=== PATIENT | female | born 1955 | race Caucasian/White ===

== ENCOUNTER 2025-02-11 14:21 | Outpatient (AMB) | payer OTHER, SELFPAY ==
--- NOTE | 2025-02-11 13:57 | A.OFFVIS_ITS ---
Vital Signs 02/11/25 14:27 Height 5 ft 4 in Weight 191 lb BMI 32.8 BP 132/70 Blood Pressure Location Rt brachial Position Sitting Pulse 56 Pulse Source Pulse Oximeter Pulse Oximetry (%) 98 Oxygen Delivery Method Room Air Intake Visit Reasons: Obstructive sleep apnea Special Certificate Dictator Required: No Paintings Conservator: Paintings Conservator offered & declined Accompanied by: Self / Same As Patient Allergies Penicillins Allergy (Verified 02/11/25 14:37) hives Sulfa (Sulfonamide Antibiotics) Allergy (Verified 02/11/25 14:37) hives Medication List - Last Reconciled 02/11/25 by Ara Ulrich LPN hydroxyzine HCl 25 mg PO Q8H PRN lisinopril 10 mg PO DAILY HPI HPI Obstructive sleep apnea: Details: Mari is a pleasant 69 year old female, never smoker, with underlying SURYA, HTN and Anxiety. She was referred by PCP for pulmonary evaluation for SURYA. Home PSG 2016 revealed severe SURYA, AHI 32, 26 obstructive and 6 central events, without significant hypoxemia. She presents today to discuss obtaining a machine as she has had her for >5 years with good benefit. She does not currently have a DME, previously used [employer] and underwent initial sleep study with [facility]. She currently denies any respiratory symptoms. [facility] Social History (Updated 02/11/25 @ 14:31 by Ara Ulrich LPN) Patient Tobacco Use Status: Never used Tobacco Review of Systems Const Denies chills, Denies excessive sweating, Denies fever(s), Denies headache(s) and Denies night sweats Eyes Denies dry eyes, Denies irritation and Denies itchy eyes ENT Reports Normal hearing present, Denies headache(s), Denies nasal congestion, Denies nasal discharge, Denies post nasal drip and Denies sore throat Card Denies chest pain, Denies chest pain at rest, Denies chest pain with activity, Denies claudication, Denies leg edema, Denies dyspnea, Denies dyspnea on exertion, Denies orthopnea and Denies paroxysmal nocturnal dyspnea Resp Denies chest congestion, Denies cough, Denies excessive phlegm production, Denies pain on inspiration, Denies pain with cough, Denies dyspnea, Denies dyspnea on exertion, Denies stridor and Denies wheezing Musc Denies myalgias Neuro Reports Normal hearing present and Denies headache(s) Endo Denies excessive sweating Richard/Lymph Denies lymphadenopathy Aller/Immun Denies itchy eyes, Denies seasonal rhinorrhea and Denies wheezing Physical Exam Vital Signs: Last Vital Signs Pulse 56 02/11/25 14:27 BP 132/70 02/11/25 14:27 Pulse Ox 98 02/11/25 14:27 Oxygen Delivery Method Room Air 02/11/25 14:27 BMI result Body Mass Index 32.8 Const General: cooperative, healthy appearing, comfortable, no acute distress, well developed and alert Orientation/consciousness: patient oriented x3 Limitations: no limitations HEENT Head: Yes normal to inspection, Yes normocephalic and Yes atraumatic Ears: hearing grossly normal bilaterally and external ears normal Eyes General: appearance normal, both eyes and all related structures Eyelids: Yes eyelids normal Sclerae: sclerae normal EOM: EOMs intact bilaterally Neck Neck: Yes normal visual inspection and Yes no lymphadenopathy Lymphatic: no lymphadenopathy noted Chest Chest palpation & inspection: normal inspection of the chest Resp Effort & Inspection: normal respiratory effort, able to speak in complete se ntences, no audible wheezes, no cough, no stridor, not tachypneic, no tripod positioning and no use of accessory muscles Auscultation: clear to auscultation bilaterally Cardio Jugular venous distension: no JVD Rate: regular rate Rhythm: regular rhythm Skin Other: warm, dry General skin exam: no rashes or lesions noted Neuro General: patient oriented x3 Cranial nerves: Yes Normal hearing present Cognition (Neuro): normal cognition Gait exam (Neuro): Normal gait present Extrem General: Yes normal to inspection, Yes capillary refill normal, Yes no clubbing, cyanosis or edema and Yes no pedal edema Psych Appearance: grossly normal and well kempt Speech and movement: Normal speech and movement present and Clear speech present Affect: normal affect Attitude: cooperative Thought process: Normal thought process present Thought content: Normal thought content present Insight: Good insight present (Psych) Judgement: Good judgement present (Psych) Assessment & Plan Assessment & Plan (1) Loud snoring: Code(s): R06.83 - Snoring Category: Medical (2) Obstructive sleep apnea: Code(s): G47.33 - Obstructive sleep apnea (adult) (pediatric) Category: Medical Plan Mari presents for management of SURYA, previously under the care of [facility]. She currently has a CPAP machine however is due for a new one, as hers is approximately 7 years old. Will send for updated home sleep study with the possibility of in lab titration study given both obstructive and central sleep apneas. All questions were answered and patient is in agreement of plan. Will follow up to review results or sooner if needed. Orders: Orders RT home sleep study Today R06.83 - Snoring Coding Level of Care Code New Pt Level 3 (78231) Diagnoses Loud snoring R06.83 Obstructive sleep apnea G47.33
[2025-02-11 14:27] VITALS: BP 132/70; PULSE 56; O2SAT 98; BMI 32.8
--- OUTSIDE RECORDS SUMMARY | 2025-02-11 17:15 | XMS_ITS | Clinical Summary ---
Author Organization [facility] [address] [place] [address] [place] [phone] Phone Care Team Providers Care Chief Librarian Work With Blind Name Role Phone Najma Taylor MD Primary Care Provider [phone] Allergies Active Allergy Reactions Criticality Noted Date Comments Penicillins 11/17/2015 Other Reaction(s): Hives/Urticaria Sulfa (Sulfonamide Antibiotics) 11/17/2015 Other Reaction(s): Hives/Urticaria Medications hydrOXYzine HCL (ATARAX) 25 mg tablet Take 1 Tablet by mouth every 8 hours as needed for Anxiety for up to 360 days. 06/27/2024 5 Active lisinopriL (PRINIVIL,ZESTR IL) 10 mg tablet Take 1 tablet (10 mg total) by mouth at bedtime. 90 tablet 1 12/31/2024 Active estradioL (ESTRACE) 0.01 % (0.1 mg/gram) vaginal creamIndication s:Genitourinary syndrome of menopause Insert 0.5 g into the vagina 1 (one) time each day. Please place 0.5g (a pea-sized amount) on your finger and place inside the vagina for 2 weeks at night, and then twice a week at night 42.5 g 3 01/19/2025 Active Active Problems Problem Noted Date Diagnosed Date Urinary incontinence 01/06/2025 Ascending aorta dilation (CMS/HCC V24) 4 Overview (01/01/2025): The ascending aorta was noted to be dilated at 3.8 cm. Anxiety 12/26/2023 Chronic pain of both knees 12/26/2023 Near syncope 11/29/2023 Overview (01/01/2025): Rosacea 01/16/2018 Obstructive sleep apnea 08/13/2017 Overview (09/26/2024): [facility] Home Polysomnogram: Date 08/09/2017; AHI 32, Unclassified apneas 1; Obstructive apneas 26; Central apneas 6; Mixed apneas 0; hypopneas 179; average oxygen saturation 97% (lowest 79% without saturations <88% for 5% or more of study) Tubular adenoma 12/23/2015 Overview (09/26/2024): 01/04 Repeat 05/09 - due 5 years Essential hypertension 12/20/2015 Overview (01/01/2025): Obesity (BMI 30.0-34.9) 12/20/2015 Resolved Problems Problem Noted Date Diagnosed Date Resolved Date Palpitations 11/29/2023 01/01/2025 Overview (09/26/2024): Last Assessment & Plan: The patient has infrequent episodes of palpitations. Her episodes of palpitations only last for a few seconds per episode. She denies any recent episodes of dizziness, near-syncope, or syncope. Previous laboratory testing showed a normal thyroid function level and serum electrolyte levels. Pheochromocytoma was ruled out with previous laboratory testing. Echocardiogram done earlier this year did not show any evidence of significant structural heart disease. 30 Day Loop monitor done earlier this year did not show any evidence of sustained arrhythmias. As such, at this point, we will continue to monitor his symptoms. The patient will contact our office if she has any worsening episodes of palpitations or if she notices any episodes of sustained palpitations. Unexplained night sweats 07/24/2023 Overview (09/26/2024): Last Assessment & Plan: I discussed with the patient that it would be unlikely that her symptoms would be related to menopause given surgical menopause in 2003 with hot flashes/night sweats initially that resolved over time. We discussed other causes of her symptoms including thyroid or cardiovascular disease. She had a normal TSH in February 2023. She is open to referral to cardiology, which was placed today. We did review treatment options for menopausal symptoms including behavioral modifications, dietary changes, exercise, as well as hormonal and non-hormonal pharmacologic treatment options. Given menopause was >10 years ago, I do not recommend starting HRT as this can increase the risk of cardiovascular disease and stroke. We reviewed non-hormonal treatment options including gabapentin and paxil. She would like to defer for now. All questions answered. RTO for annual exam. Encounters Date Type Department Care Team Description 02/06/[address] [facility] [address] [facility] [address] [place] [phone] Najma Taylor MD Medical Records 01/19/2025 9:15 AM EDT Office Visit U[address]gynecolog[address] [phone] Mamie Strong MD Urge incontinence (Primary Dx); Urinary incontinence, unspecified type; Urinary urgency; Genitourinary syndrome of menopause; PEREZ (stress urinary incontinence, female); Microscopic hematuria 01/15/[address] [facility] [address] [facility] [address] [place] [phone] Emmanuel Smith MD Medical Records 01/06/2025 9:30 AM EDT Office Visit Adult Medicine [address] [phone] Najma Taylor MD Essential hypertension (Primary Dx); Anxiety; Hyperlipidemia, unspecified hyperlipidemia type; Urinary incontinence, unspecified type; Obstructive sleep apnea; Need for vaccination against Streptococcus pneumoniae; Need for tetanus, diphtheria, and acellular pertussis (Tdap) vaccine 12/29/2024 10:00 AM EDT Ancillary Procedure [facility] [address] [place] [phone] Ascending aorta dilation (CMS/HCC V24) from Last 3 Months Immunizations Name Administration Dates Next Due Influenza Quadravalent, MDCK , 0.5ml, preservative free (Flucelvax) 6mo and older 01/19/2021,06/26/2019 Influenza trivalent, 0.5mL ( Fluzone High-dose) 65yo and older 06/27/2024,06/27/2022 Influenza, Unspecified 07/23/2023 Moderna SARS-CoV-2 COVID-19, mRNA, LNP-S, preservative free 12/23/2020,11/25/2020 Pneumococcal conjugate 20 va lent (Prevnar 20, PCV 20) 2mo and older 01/06/2025 Tdap Tetanus diptheria acell ular pertussis (Boostrix; Adacel) 7yo and older 01/06/2025,11/09/2014 Zoster Live 01/15/2017 Zoster recombinant (Shingrix) 19yo and older Surgical History Surgery Date Site/Laterality Comments OOPHORECTOMY 1992 Right HYSTERECTOMY 2004 CHOLECYSTECTOMY 2001 COLONOSCOPY 12/17/2015 Large polyp, piecemeal incomplete removal COLONOSCOPY 02/14/2016 polyps x 2, hemorrhoids, rpt in 3 years COLONOSCOPY 05/01/2019 : negative COLONOSCOPY 01/2024 negative, repeat 5 years SCREENING MAMMOGRAM 09/03/2024 Bilateral Medical History Medical History Date Comments Essential hypertension 12/20/2015 Non morbid obesity 12/20/2015 Tubular adenoma 12/23/201501/04 Rosacea 01/16/2018 Family History Medical History Relation Name Comments Hypertension Brother Other: autism Daughter Suicide Attempts Father age 35 Other: liver cancer Maternal Grandfather Heart attack Maternal Grandmother stroke, 90 Uterine cancer Mother 86, stro ke, hypertension No Known Problems Paternal Grandfather Diabetes Paternal Grandmother stroke, CHF, 72 Breast cancer Neg Hx Colon cancer Neg Hx Ovarian cancer Neg Hx Relation Name Status Comments Brother Daughter Father Maternal Grandfather Maternal Grandmother Mother Paternal Grandfather Paternal Grandmother Social History Tobacco Use Types Packs/Day Years Used Date Smoking Tobacco: Never Smokeless Tobacco: Never Tobacco Cessation:Counseling Given: Not Answered Alcohol Use Standard Drinks/Week Comments Yes 0 (1 standard drink = 0.6 oz pur e alcohol) Housing Instability Answer Date Recorde d Are you worried that in the next 2 months you may not have stable housing? No 12/30/2024 Food Access & Nutrition Answer Date Rec orded Do you have access to a vari ety of food including fruits and vegetables? Yes 12/30/2024 Health Literacy Answer Date Recorded How often do you need to hav e someone help you when you read instructions, pamphlets, or other written material from your doctor or pharmacy? Never 12/30/2024 Caregiver: How often do you need to have someone help you when you read instructions, pamphlets, or other written material from your doctor or pharmacy? Not on file 12/30/2024 Financial Risk Answer Date Recorded How hard is it for you to pa y for the very basics like food, housing, medical care, and air conditioning / heating? Not very hard 12/30/2024 Transportation Answer Date Recorded Has the lack of transportati on kept you from meetings, work, or from getting things needed for daily living? No Has the lack of transportati on kept you from medical appointments or from getting medications? No 12/30/2024 Social Isolation Answer Date Recorded How often do you feel lonely or isolated from th ose around you? Never 12/30/2024 Food Risk Answer Date Recorded Within the past 12 months we worried whether our food would run out before we got money to buy more. Never true 12/30/2024 Within the past 12 months th e food we bought just didn't last and we didn't have money to get more. Never true 12/30/2024 Dependent Care Answer Date Recorded Do you need help finding or paying for care for your loved ones. For example, registered nurse maternal child or elderly care for an older adult? Patient declined 12/30/2024 Education Answer Date Recorded Do you think completing more education or training, like finishing a GED, going to college, or learning a trade, would be helpful for you? N/A 12/30/2024 Employment and Income Answer Date Recor ded During the last four weeks, have you been actively looking for work? Patient declined 12/30/2024 Living Situation Answer Date Recorded What is your living situation? 0 12/30/2024 Comments Unknown Sex and Gender Information Value Date Recorded Sex Assigned at Female 05/08/2024 8:41 AM EDT Legal Sex Female 4:02 PM EST Gender Identity Female 05/08/2024 8:41 AM EDT Sexual Orientation Straight 05/08/2024 8: 41 AM EDT Obstetrics History Para Term AB IAB SAB Ectopic Multiple Livin g Live Births 2 2 2 2 Date Outcome GA Total Labor Labor/2nd/3rd Weight Sex Type Anes PTL Irma A1 A5 Name Clin Term Term Last Filed Vital Signs Vital Sign Reading Time Taken Comments Blood Pressure 155/77 01/19/2025 9:30 AM EDT Pulse 64 01/19/2025 9:30 AM EDT Temperature 36.3 ??C (97.3 ??F) 01/06/2025 9:12 AM ED T Respiratory Rate 14 01/06/2025 9:12 AM EDT Oxygen Saturation 97% 01/06/2025 9:12 AM EDT Inhaled Oxygen Concentration - - Weight 86.6 kg (191 lb) 01/19/2025 9:30 AM EDT Height 162.6 cm (5' 4 ) 01/19/2025 9:30 AM EDT Body Mass Index 32.79 01/19/2025 9:30 AM EDT Plan of Treatment Upcoming Encounters Date Type Department Care Team (Late st Contact Info) Description 02/23/2025 3:00 PM EDT Treatment Pelvic Floor Rehabilitation - [address] [phone] Gricelda Duffy, PT [address] [address] 07/22/2025 8:30 AM EDT Office Visit Urogynecology - [address] [phone] Mamie Strong MD [address] [phone] Health Maintenance Due Date Last Done Comments Zoster Vaccines (3 of 3) 05/05/2024 03/10/2024, 12/21 Hypertension/CHF/CAD Annual BMP Blood Test 12/25/2024 12/26/2023 COVID-19 Vaccine ( season) 2025 08/29/2024, 10/06/2022, 09/13/2021, Additional history exists Social Influencers of Health Screening 12/30/2025 12/30/2024 Depression Screening 01/06/2026 01/06/2025 Falls Risk Assessment 01/06/2026 01/06/2025 Breast Cancer Screening 09/03/2026 09/03/20, 08/28/2023, 08/23/2022, Additional history exists Cholesterol Screening (Lipid Panel) 12/25/2028 12/26/2023 Colorectal Cancer Screening: Colonoscopy 01/23/2029 01/24/2024 RSV Immunization Adult Patients (1 - 1-dose 75+ series) 2031 DTaP,Tdap,and Td Vaccines (3 - Td or Tdap) 01/06/2035 01/06/2025, 11/09/2014 Osteoporosis Screening (Bone Density Screening) 04/04/2037 04/04/2022 Hepatitis C Screening Completed 07/19/2018 Influenza Vaccine Completed 06/27/2024, , 06/27/2022, Additional history exists Pneumococcal Vaccine: 50+ Years Completed 01/06/2025 HIB Vaccines Aged Out No longer eligi ble based on patient's age to complete this topic HPV Vaccines Aged Out No longer eligi ble based on patient's age to complete this topic Hepatitis A Vaccines Aged Out No long er eligible based on patient's age to complete this topic Hepatitis B Vaccines Aged Out No long er eligible based on patient's age to complete this topic IPV Vaccines Aged Out No longer eligi ble based on patient's age to complete this topic MMR Vaccines Aged Out No longer eligi ble based on patient's age to complete this topic Meningococcal ACWY Vaccine Aged Out N o longer eligible based on patient's age to complete this topic Meningococcal B Vaccine Aged Out No l onger eligible based on patient's age to complete this topic RSV Immunization Patients Under 20 months Aged Out No longer eligible based on patient's age to complete this topic Varicella Vaccines Aged Out No longer eligible based on patient's age to complete this topic Procedures Procedure Name Priority Date/Time Associated Diagnosis Comments URINALYSIS MICROSCOPIC ONLY Routine 01/19/2025 10:17 AM EDT Microscopic hematuria URINALYSIS MICROSCOPIC ONLY Routine 01/19/2025 10:17 AM EDT Microscopic hematuria POC URINE AUTO W/O MICRO Routine 01/19/2025 10:05 AM EDT Urge incontinence MG MAMMO DIGITAL SCREENING W LUI BILAT Routine 09/03/2024 9:04 AM EST Encounter for screening mammogram for breast cancer COLONOSCOPY Routine 01/24/2024 ANNUAL BMP BLOOD TEST Routine 12/26/2023 LIPID PANEL Routine 12/26/2023 DXA BONE DENSITY STUDY 1+ SITS AXIAL SKEL Routine 04/04/2022 3:04 PM EDT Asymptomatic menopausal state HEPATITIS C SCREENING Routine 07/19/2018 from Last 3 Months or Most Recently Relevant to Health Maintenance Results * Urinalysis microscopic only (01/19/2025 10:17 AM EDT) RBC, Urine 2.7 0 - 4 /HPF LAB URINALYSIS - AUTOMATED METHOD 01/19/2025 4:51 PM [facility] WBC, Urine 0.3 0 - 4 /HPF LAB URINALYSIS - AUTOMATED METHOD 01/19/2025 4:51 PM [facility] Squamous Epithelial, Urine 35 0 - 60 /LPF LAB URINALYSIS - AUTOMATED METHOD 01/19/2025 4:51 PM [facility] Bacteria, Urine Negative Negative /HPF LAB URINALYSIS - AUTOMATED METHOD 01/19/2025 4:51 PM [facility] Hyaline Casts, Urine 0.4 0 - 3 /LPF LAB URINALYSIS - AUTOMATED METHOD 01/19/2025 4:51 PM [facility] Urine Urine specimen obtained by clean catch procedure / Unknown Non-blood Collection / Unknown 01/19/2025 10:17 AM EDT 01/19/2025 10:17 AM EDT us Mamie Strong MD LAB URINE ORDERABLES Final Resul t [facility] [address] [place] [address], [place] [phone] * (ABNORMAL) POC Urine Auto W/O Micro (01/19/2025 10:05 AM EDT) Glucose UA POC Negative Negative, Trace mg/dL Bilirubin UA POC Negative Negative, Small Ketones UA POC Negative Negative, Trace Specific Stur[place] UA POC 1.025 Blood UA POC Trace - Intact(A) Negative, Large PH UA POC 6.0 Protein UA POC Trace(A) Negative, >=300 mg/dL Urobilinogen UA POC 0.2 E.U./dL mg/dL Nitrite UA POC Negative Negative Leukocytes UA POC Negative Negative Urine Urine specimen obtained by clean catch procedure / Unknown 01/19/2025 10:05 AM EDT us Mamie Strong MD POINT OF CARE TEST ENTER/EDIT OR DERABLES Final Result * MG Mammo Digital Screening w Lui bilat (09/03/2024 9:04 AM EST) Anatomical Region Laterality Modality Breast Bilateral Mammography 09/03/2024 11:0 4 AM EST Impressions 09/03/2024 11:07 AM EST Stable mammographic appearance of the breasts. ??No evidence of malignancy is seen. A negative mammogram in the presence of a clinically suspicious palpable abnormality does not preclude the possibility of malignancy or alter the indications for biopsy. BI-RADS: ??Category 1: Negative RECOMMENDATION(S): 1: Routine screening mammogram BILATERAL in 1 year. Mammo Location: [facility], [address] [place] [address], [id number], . -------- FINAL REPORT -------- Dictated By: Anne Ann Dictated Date: 09/03/2024 11:04 ET Assigned Physician: Anne Ann Reviewed and Electronically Signed By: Anne Ann Signed Date: 09/03/2024 11:07 ET Workstation ID: [id number] Transcribed By: Self Edit Transcribed Date: 09/03/2024 11:04 ET Narrative 09/03/2024 11:07 AM EST EXAM: MAMMO DIGITAL SCREENING W LUI BILAT EXAM DATE: 09/03/2024 8:58 AM HISTORY: ??Breast cancer screen, avg risk, asymptomatic (Age => 40y) COMPARISON: Mammograms dating back to 08/05/2020 with most recent of 08/28/2023 As noted. TECHNIQUE: Bilateral digital breast tomosynthesis was performed in the CC and MLO projections. Computer aided detection with iCAD ProFound AI 3D 3.1 was employed. TISSUE DENSITY: b. There are scattered areas of fibroglandular density. FINDINGS: No suspicious masses, grouped microcalcifications, or areas of architectural distortion are seen. The skin and vascularity are unremarkable. Procedure Note Anne Ann MD - 09/03/2024 EXAM: MAMMO DIGITAL SCREENING W LUI BILAT EXAM DATE: 09/03/2024 8:58 AM HISTORY: Breast cancer screen, avg risk, asymptomatic (Age => 40y) COMPARISON: Mammograms dating back to 08/05/2020 with most recent of08/28/2023 As noted. TECHNIQUE: Bilateral digital breast tomosynthesis was performed in the CCand MLO projections. Computer aided detection with iCAD ProFound AI 3D 3.1was employed. TISSUE DENSITY: b. There are scattered areas of fibroglandular density. FINDINGS: No suspicious masses, grouped microcalcifications, or areas ofarchitectural distortion are seen. The skin and vascularity areunremarkable. IMPRESSION: Stable mammographic appearance of the breasts. No evidence of malignancyis seen. A negative mammogram in the presence of a clinically suspicious palpableabnormality does not preclude the possibility of malignancy or alter theindications for biopsy. BI-RADS: Category 1: Negative RECOMMENDATION(S): 1: Routine screening mammogram BILATERAL in 1 year. Mammo Location: [facility], [address] [place] [address], [id number], . -------- FINAL REPORT -------- Dictated By: Anne Ann Dictated Date: 09/03/2024 11:04 ET Assigned Physician: Anne Ann Reviewed and Electronically Signed By: Anne Ann Signed Date: 09/03/2024 11:07 ET Workstation ID: [id number] Transcribed By: Self Edit Transcribed Date: 09/03/2024 11:04 ET Najma Taylor MD IMG BI PROCEDURES Final Result * Colonoscopy (01/24/2024) [facility] Colonoscopy no interpretation , abstracted Anatomical Region Laterality Modality Other Historical Provider HEALTH MAINTENANCE Final Result * Annual BMP Blood Test (12/26/2023) [facility] Annual BMP Blood Test abstracted Historical Provider HEALTH MAINTENANCE Final Result * (ABNORMAL) Lipid panel (12/26/2023) [facility] [address] LDL/HDL Ratio 3 0 - 4 Triglycerides 54 0 - 150 mg/dL Cholesterol 192 0 - 200 mg/dL HDL 70 >=40 mg/dL LDL Cholesterol 112(A) 0 - 100 mg/dL Blood Venous blood specimen / Unknown Historical Provider LAB BLOOD ORDERABLES Rosa Elena l Result * DXA BONE DENSITY STUDY 1+ SITS AXIAL SKEL (04/04/2022 3:04 PM EDT) Anatomical Region Laterality Modality Bone Densitometr y 12/21/2021 8:56 AM EST Narrative 04/04/2022 3:46 PM EDT BONE DENSITY (DEXA) ? Lumbar Spine T-score is 1.2. ?? (SD relative to 20-29 y/o adult) Z-score is 3.0 by WHO criteria. This is considered normal by WHO criteria. Left Hip T-score is -0.9. Z-score is 0.6. This is considered normal by WHO criteria. IMPRESSION: This patient is considered to have normal bone density by WHO criteria. The [facility] Department of Internal Medicine recommends using National Osteoporosis Foundation (NOF) guidelines in treatment decisions related to osteoporosis. NOF guidelines suggest considering treatment for postmenopausal women and men aged 50 or older presenting with the following: History of hip or vertebral fracture. T-score = -2.5 (DXA) at the femoral neck, total hip, or spine, after appropriate evaluation to exclude secondary causes. Low bone mass (T-score between -1.0 and -2.5 at the femoral neck or spine) AND a 10-year probability of a hip fracture = 3% OR a 10-year probability of a major osteoporosis-related fracture = 20% based on the [place]-adapted WHO algorithm Please note that all treatment decisions require clinical judgment and consideration of individual patient factors, including patient preferences, co-morbidities, previous drug use, risk factors not captured in the FRAX model (e.g., frailty, falls, vitamin D deficiency, increased bone turnover, interval significant decline in bone density) and possible under- or over-estimation of fracture risk by FRAX. Optional alternative screening schedule based on patsy Bonds., [facility] November 09, 2011 for patients with osteopenia (based on hip BMD T-score) is as follows: * ??advanced osteopenia (T scores -2.00 to -2.49), BMD testing every year * ??moderate osteopenia (T scores -1.50 to -1.99), BMD testing every 5 years mild osteopenia or normal BMD (T scores -1.50 and higher), BMD testing every 15 years Procedure Note Anne Ann MD - 10/10/2022 BONE DENSITY (DEXA) Lumbar Spine T-score is 1.2. (SD relative to 20-29 y/o adult) Z-score is 3.0 by WHO criteria. This is considered normal by WHO criteria. Left Hip T-score is -0.9. Z-score is 0.6. This is considered normal by WHO criteria. IMPRESSION: This patient is considered to have normal bone density by WHO criteria. The [facility] Department of Internal Medicine recommendsusing National Osteoporosis Foundation (NOF) guidelines in treatment decisions related toosteoporosis. NOF guidelines suggest considering treatment for postmenopausal women and menaged 50 or older presenting with the following: History of hip or vertebral fracture. T-score = -2.5 (DXA) at the femoral neck, total hip, or spine, afterappropriate evaluation to exclude secondary causes. Low bone mass (T-score between -1.0 and -2.5 at the femoral neck or spine)AND a 10-year probability of a hip fracture = 3% OR a 10-year probability of a majorosteoporosis-related fracture = 20% based on the [place]-adapted WHO algorithm Please note that all treatment decisions require clinical judgment andconsideration of individual patient factors, including patient preferences, co- morbidities,previous drug use, risk factors not captured in the FRAX model (e.g., frailty, falls, vitaminD deficiency, increased bone turnover, interval significant decline in bone density) andpossible under- or over-estimation of fracture risk by FRAX. Optional alternative screening schedule based [facility] pat[facility] Bonds., [facility] for patients with [facility] (based on hip BMD T-score) is as follows: * advanced osteopenia (T scores -2.00 to -2.49), BMD testing every year * moderate osteopenia (T scores -1.50 to -1.99), BMD testing every 5years mild osteopenia or normal BMD (T scores -1.50 and higher), BMD testingevery 15 years Estee LIU IMG DXA PROCEDURES Final Resu lt * Hepatitis C Screening (07/19/2018) [facility] Hepatitis C Screening abstracted Historical Provider HEALTH MAINTENANCE Final Result from Last 3 Months or Most Recently Relevant to Health Maintenance Insurance [employer] Care Teams Chief Librarian Work With Blind Relationship Specialty Start Date End Date Najma Taylor MD [address] [place] [address] PCP - General Internal Medicine 07/13/15
--- OUTSIDE RECORDS SUMMARY | 2025-02-11 17:15 | XMS_ITS | Encounter Summary ---
Author Organization [facility] Address [address] [place] [address] Care Team Providers Care Hospice Fellow Name Role Phone Najma Taylor MD Primary Care Provider Reason for Visit * Reason Onset Date Comments Medical Records 02/06/2025 Encounter Details Date Type Department Care Team (Late st Contact Info) Description 02/06/2025 Telephone [facility] Cardiology [facility] [address] [place] [address] Najma Taylor MD [address] [place] [id number] Medical Records Social History Tobacco Use Types Packs/Day Years Used Date Smoking Tobacco: Never Smokeless Tobacco: Never Alcohol Use Standard Drinks/Week Comments Yes 0 [...] care for your loved ones. For example, infant childcare provider or elderly care for an older adult? [...] Orientation Straight 05/08/2024 8: 41 AM EDT documented as of this encounter Progress Notes * Alicja Anand - 02/06/2025 1:43 PM EDT Faxed 07/01/2024 Office Note and 12/29/2024 Echo report to [facility] Pulmonary Dept. Att: Rebekah at [phone] on 01/15/2025 documented in this encounter Plan of Treatment Upcoming Encounters Date Type Department Care Team (Late st Contact Info) Description 02/23/2025 3:00 PM EDT Treatment Pelvic Floor Rehabilitation - [address] [phone] Gricelda Duffy, PT [address] [address] 07/22/2025 8:30 AM EDT Office Visit Urogynecology - [address] [phone] Mamie Strong MD [address] [phone] documented as of this encounter Visit Diagnoses Not on filedocumented in this encounter Additional Health Concerns Assessment Noted Time PHQ-9 Depression Total Score: 0 01/07/20 25 9:22 AM EDT A fall risk assessment has been complete d for the patient 01/06/2025 9:21 AM EDT documented as of this encounter Care Teams Hospice Fellow Relationship Specialty Start Date End Date Najma Taylor MD [address] [place] [id number] PCP - General Internal Medicine 07/13/15 documented as of this encounter
== END 2025-02-11 14:50 | disposition home or self-care (01) ==
LOC: HO.HPSW 14:21
PROVIDERS: PCP Internal Medicine; Referring Provider Internal Medicine; Visit Provider Nurse Practitioner Family
DX: R06.83 Snoring (principal); G47.33 Obstructive sleep apnea (adult) (pediatric)
CPT/HCPCS: 99203

== ENCOUNTER → 2025-02-11 14:21 | Outpatient (BNVA) | payer OTHER, SELFPAY | PROVIDERS: PCP Internal Medicine; Referring Provider Internal Medicine; Visit Provider Nurse Practitioner Family ==

== ENCOUNTER → 2025-04-23 08:43 | Outpatient (REF) | payer OTHER, SELFPAY ==
--- OUTSIDE RECORDS SUMMARY | 2025-04-23 08:50 | XMS_ITS | Clinical Summary ---
Author Organization [facility] [address] [place] [address] [place] [phone] Phone Care Team Providers Care Union Contract Representative Name Role Phone Najma Taylor MD Primary Care Provider [phone] Allergies Active Allergy Reactions Criticality Noted Date [...] 01/16/2018 Obstructive sleep apnea 08/13/2017 Overview (09/26/2024): [facility] Home Polysomnogram: Date 08/09/2017; AHI 32, Unclassified [...] Encounters Date Type Department Care Team Description 03/30/2025 8:30 AM EDT Treatment Pelvic Floor Rehabilitation - [address] [phone] Gricelda Duffy, PT Urge urinary incontinence (Primary Dx); Muscle weakness; PEREZ (stress urinary incontinence, female); Dysuria 03/06/2025 9:30 AM EDT Treatment Pelvic Floor Rehabilitation - [address] [phone] Gricelda Duffy, PT Urge urinary incontinence (Primary Dx); Muscle weakness; PEREZ (stress urinary incontinence, female); Dysuria 02/23/2025 3:00 PM EDT Treatment [facility] Floor Rehabilitation - [address] [phone] Gricelda Duffy, PT Urge urinary incontinence (Primary Dx); Muscle weakness; PEREZ (stress urinary incontinence, female); Dysuria 02/06/2025 Telephone [facility] [address] [place] [address] Najma Taylor MD Medical Records from Last 3 Months Immunizations Name Administration [...] care for your loved ones. For example, child development assistant or elderly care for an older adult? [...] 65 01/19/2025 9:30 AM EDT Temperature 36.3 C (97.3 F) 01/06/2025 9:12 AM EDT Respiratory Rate 14 01/06/2025 9:12 AM EDT Oxygen Saturation 97% 01/06/2025 9:12 AM EDT Inhaled Oxygen Concentration - - Weight 86.6 kg (191 lb) 01/19/2025 9:30 AM EDT Height 162.6 cm (5' 4 ) 01/19/2025 9:30 AM EDT Body Mass Index 32.79 01/19/2025 9:30 AM EDT Plan of Treatment Upcoming Encounters Date Type Department Care Team (Late st Contact Info) Description 05/11/2025 9:00 AM EDT Treatment Pelvic Floor Rehabilitation - [address] [phone] Gricelda Duffy, PT [address] [address] 07/21/2025 8:00 AM EDT Office Visit Adult Medicine [facility] - [address] [phone] Estee Chavira PA [address] [place], [place] 07/22/2025 8:30 AM EDT Office Visit Urogynecology - [address] [phone] Mamie Strong MD [address] [address] Health Maintenance Due Date Last Done Comments Zoster Vaccines (3 of 3) 05/05/2024 03/10/2024, 12/21 COVID-19 Vaccine ( season) 2025 08/29/2024, 10/06/2022, 09/13/2021, Additional history exists Influenza Vaccine (#1) 2025 , 07/23/2023, 06/27/2022, Additional history exists Social Influencers of Health Screening 12/30/2025 12/30/2024 Depression Screening 01/06/2026 01/06/2025 Falls Risk Assessment 01/06/2026 01/06/2025 Hypertension/CHF/CAD Annual BMP Blood Test 04/20/2026 04/20/2025, 12/26/2023 Breast Cancer Screening 09/03/2026 09/03/20 24, 08/28/2023, 08/23/2022, Additional history exists Colorectal Cancer Screening: Colonoscopy 01/23/2029 01/24/2024 Cholesterol Screening (Lipid Panel) 04/20/2030 04/20/2025, 12/26/2023 RSV Immunization Adult Patients (1 - 1-dose 75+ series) 2031 DTaP,Tdap,and Td Vaccines (3 - Td or Tdap) 01/06/2035 01/06/2025, 11/09/2014 Osteoporosis Screening (Bone Density Screening) 04/04/2037 04/04/2022 Hepatitis C Screening Completed 07/19/2018 Pneumococcal Vaccine: 50+ Years Completed 01/06/2025 HIB [...] Procedure Name Priority Date/Time Associated Diagnosis Comments BASIC METABOLIC PANEL Routine 04/20/2025 2:13 PM EDT Essential hypertension LIPID PANEL WITH REFLEX TO DIRECT LDL Routine 04/20/2025 2:13 PM EDT Hyperlipidemia, unspecified hyperlipidemia type MG MAMMO DIGITAL SCREENING W LUI BILAT Routine 09/03/2024 9:04 AM EST Encounter for screening mammogram for breast cancer COLONOSCOPY Routine 01/24/2024 DXA BONE DENSITY STUDY 1+ SITS AXIAL SKEL Routine 04/04/2022 3:04 PM EDT Asymptomatic menopausal state HEPATITIS C SCREENING Routine 07/19/2018 from Last 3 Months or Most Recently Relevant to Health Maintenance Results * Lipid panel with reflex to direct LDL (04/20/2025 2:13 PM EDT) Cholesterol 182 0 - 200 mg/dL LAB CHEMISTRY METHOD 04/20/2025 5:29 PM EDT [facility] Triglycerides 110 0 - 150 mg/dL LAB CHEMISTRY METHOD 04/20/2025 5:29 PM [facility] HDL 66 >=40 mg/dL LAB CHEMISTRY METHOD 04/20/2025 5:29 PM [facility] LDL Calculated 94 0 - 100 mg/dL LAB CHEMISTRY METHOD 04/20/2025 5:29 PM [facility] VLDL Cholesterol Dilip 22 mg/dL LAB CHEMISTRY METHOD 04/20/2025 5:29 PM [facility] Non HDL Chol. (LDL+VLDL) 116 <145 mg/dL LAB CHEMISTRY METHOD 04/20/2025 5:29 PM [facility] Chol/HDL Ratio 2.8 0.0 - 4.4 LAB CHEMISTRY METHOD 04/20/2025 5:29 PM [facility] Blood Venous blood specimen / Unknown Venipuncture / Unknown 04/20/2025 2:13 PM EDT 04/20/2025 2:13 PM EDT us Najma Taylor MD LAB BLOOD ORDERABLES Final Resul t [facility] [address] [place] [address], [place] [phone] * Basic metabolic panel (04/20/2025 2:13 PM EDT) Sodium 140 133 - 145 mmol/L LAB CHEMISTRY METHOD 04/20/2025 5:28 PM EDT [facility] Potassium 4.0 3.5 - 5.5 mmol/L LAB CHEMISTRY METHOD 04/20/2025 5:28 PM [facility] Chloride 108 96 - 110 mmol/L LAB CHEMISTRY METHOD 04/20/2025 5:28 PM [facility] CO2 26 21 - 32 mmol/L LAB CHEMISTRY METHOD 04/20/2025 5:28 PM [facility] Anion Gap 6 3 - 11 LAB CHEMISTRY METHOD 04/20/2025 5:28 PM [facility] Glucose 84 70 - 100 mg/dL LAB CHEMISTRY METHOD 04/20/2025 5:28 PM [facility] BUN 15 5 - 25 mg/dL LAB CHEMISTRY METHOD 04/20/2025 5:28 PM [facility] Creatinine 0.82 0.50 - 1.10 mg/dL LAB CHEMISTRY METHOD 04/20/2025 5:28 PM [facility] eGFR 78 >=60 mL/min/1. 73m2 LAB CHEMISTRY METHOD 04/20/2025 5:28 PM [facility] Comment:Calculation based on the Chronic Kidney Disease Epidemiology Collaboration (CKD-EPI) equation refit without adjustment for race. BUN/Creatinine Ratio 18.3 LAB CHEMISTRY METHOD 04/20/2025 5:28 PM EDT [facility] Calcium 8.9 8.5 - 10.5 mg/dL LAB CHEMISTRY METHOD 04/20/2025 5:28 PM EDT [facility] Blood Venous blood specimen / Unknown Venipuncture / Unknown 04/20/2025 2:13 PM EDT 04/20/2025 2:13 PM EDT us Najma Taylor MD LAB BLOOD ORDERABLES Final Resul t [facility] [address] [place] [address], * MG Mammo Digital Screening w Lui bilat (09/03/2024 9:04 AM EST) Anatomical Region Laterality Modality Breast Bilateral Mammography 09/03/2024 11:0 4 AM EST Impressions 09/03/2024 11:07 AM EST Stable mammographic appearance of the breasts. No evidence of malignancy is seen. A negative mammogram in the presence of a clinically suspicious palpable abnormality does not preclude the possibility of malignancy or alter the indications for biopsy. BI-RADS: Category 1: Negative RECOMMENDATION(S): 1: Routine screening mammogram BILATERAL in 1 year. Mammo Location: [facility], [address] [place] [address], [phone], . -------- FINAL REPORT -------- Dictated By: Anne Ann Dictated Date: 09/03/2024 11:04 ET Assigned Physician: Anne Ann Reviewed and Electronically Signed By: Anne Ann Signed Date: 09/03/2024 11:07 ET Workstation ID: [id number] Transcribed By: Self Edit Transcribed Date: 09/03/2024 11:04 ET Narrative 09/03/2024 11:07 AM EST EXAM: MG MAMMO DIGITAL SCREENING W LUI BILAT EXAM [...] Note Anne Ann MD - 09/03/2024 EXAM: MG MAMMO DIGITAL SCREENING W LUI BILAT EXAM [...] mammogram BILATERAL in 1 year. Mammo Location: [facility], [address] [place] [address], [id number], . -------- FINAL REPORT -------- Dictated By: Anne Ann Dictated Date: 09/03/2024 11:04 ET Assigned Physician: Anne Ann Reviewed and Electronically Signed By: Anne Ann Signed Date: 09/03/2024 11:07 ET Workstation ID: [id number] Transcribed By: Self Edit Transcribed Date: 09/03/2024 11:04 ET Najma Taylor MD IMG BI PROCEDURES Final Result * Colonoscopy (01/24/2024) Colonoscopy no interpretation , abstracted Anatomical Region Laterality Modality Other Historical Provider HEALTH MAINTENANCE Final Result * DXA BONE DENSITY STUDY 1+ SITS AXIAL SKEL (04/04/2022 3:04 PM EDT) Anatomical Region Laterality Modality Bone Densitometr y 12/21/2021 8:56 AM EST Narrative 04/04/2022 3:46 PM EDT BONE DENSITY (DEXA) Lumbar Spine T-score is 1.2. (SD relative to 20-29 y/o adult) Z-score is 3.0 by WHO criteria. This is considered normal by WHO criteria. Left Hip T-score is -0.9. Z-score is 0.6. This is considered normal by WHO criteria. IMPRESSION: This patient is considered to have normal bone density by WHO criteria. [facility] Department of Internal Medicine recommends using National [...] alternative screening schedule based on patsy Bonds., BANNER November 09, 2011 for patients with osteopenia [...] normal bone density by WHO criteria. [facility] Department of Internal Medicine recommendsusing National Osteoporosis [...] alternative screening schedule based on patsy Bonds., NEJMJanuary 2011 for patients with osteopenia (based on [...] Resu lt * Hepatitis C Screening (07/19/2018) Hepatitis C Screening abstracted Historical Provider MD HEALTH MAINTENANCE Final Result from Last 3 Months or Most Recently Relevant to Health Maintenance Insurance [employer] Care Teams Union Contract Representative Relationship Specialty Start Date End Date Najma Taylor MD [address] [place] [address] PCP - General Internal Medicine 07/13/15
== END ==
LOC: HO.SL 08:43
PROVIDERS: PCP Internal Medicine; Visit Provider Nurse Practitioner Family
DX: G47.33 Obstructive sleep apnea (adult) (pediatric) (principal); R06.83 Snoring; R40.0 Somnolence
CPT/HCPCS: 95806

== ENCOUNTER → 2025-04-23 09:14 | Outpatient (BNV) | payer OTHER, SELFPAY | PROVIDERS: PCP Internal Medicine; Visit Provider Internal Medicine | DX: G47.33 Obstructive sleep apnea (adult) (pediatric) (principal) | CPT/HCPCS: 95806 ==

== ENCOUNTER 2025-05-19 12:56 | Outpatient (AMB) | payer OTHER, SELFPAY ==
[2025-05-19 12:59] VITALS: BP 136/74; PULSE 68; O2SAT 96; BMI 32.6
--- NOTE | 2025-05-19 12:59 | MHC.OFFVIS ---
Vital Signs 05/19/25 12:59 Height 5 ft 4 in Weight 190 lb BMI 32.6 BP 136/74 Blood Pressure Location Rt brachial Position Sitting Pulse 68 Pulse Source Pulse Oximeter Pulse Oximetry (%) 96 Oxygen Delivery Method Room Air Intake Visit Reasons: Obstructive sleep apnea Allergies Penicillins Allergy (Verified 05/19/25 13:02) hives Sulfa (Sulfonamide Antibiotics) Allergy (Verified 05/19/25 13:02) hives HPI HPI Obstructive sleep apnea: Details: Mari is a pleasant 69 year old female, never smoker, with underlying SURYA, HTN and Anxiety. She was initially referred by PCP for pulmonary evaluation for SURYA. Home PSG 2017 revealed severe SURYA, AHI 32, 26 obstructive and 6 central events, without significant hypoxemia. She has a current CPAP machine that is >7 years old which she has been using with good benefit, noting improved sleep quality and restorative sleep. Today she presents to review home sleep study. At this time, denies any respiratory symptoms. [facility] Social History Patient Tobacco Use Status: Never used Tobacco Review of Systems Const Denies chills, Denies excessive sweating, Denies fever(s), Denies headache(s) and Denies night sweats Eyes Denies dry eyes, Denies irritation and Denies itchy eyes ENT Reports Normal hearing present, Denies headache(s), Denies nasal congestion, Denies nasal discharge, Denies post nasal drip and Denies sore throat Card Denies chest pain, Denies chest pain at rest, Denies chest pain with activity, Denies claudication, Denies leg edema, Denies dyspnea, Denies dyspnea on exertion, Denies orthopnea and Denies paroxysmal nocturnal dyspnea Resp Denies chest congestion, Denies cough, Denies excessive phlegm production, Denies pain on inspiration, Denies pain with cough, Denies dyspnea, Denies dyspnea on exertion, Denies stridor and Denies wheezing Musc Denies myalgias Neuro Reports Normal hearing present and Denies headache(s) Endo Denies excessive sweating Richard/Lymph Denies lymphadenopathy Aller/Immun Denies itchy eyes, Denies seasonal rhinorrhea and Denies wheezing Physical Exam Vital Signs: Last Vital Signs Pulse 68 05/19/25 12:59 BP 136/74 05/19/25 12:59 Pulse Ox 96 05/19/25 12:59 Oxygen Delivery Method Room Air 05/19/25 12:59 BMI result Body Mass Index 32.6 Const General: cooperative, healthy appearing, comfortable, no acute distress, well developed and alert Nutritional Appearance: obese Orientation/consciousness: patient oriented x3 Limitations: no limitations HEENT Head: Yes normal to inspection, Yes normocephalic and Yes atraumatic Ears: hearing grossly normal bilaterally and external ears normal Eyes General: appearance normal, both eyes and all related structures Eyelids: Yes eyelids normal Sclerae: sclerae normal EOM: EOMs intact bilaterally Neck Neck: Yes normal visual inspection and Yes no lymphadenopathy Lymphatic: no lymphadenopathy noted Chest Chest palpation & inspection: normal inspection of the chest Resp Effort & Inspection: normal respiratory effort, able to speak in complete sentences, no audible wheezes, no cough, no stridor, not tachypneic, no tripod positioning and no use of accessory muscles Auscultation: clear to auscultation bilaterally Cardio Jugular venous distension: no JVD Rate: regular rate Rhythm: regular rhythm Skin Other: warm, dry General skin exam: no rashes or lesions noted Neuro General: patient oriented x3 Cranial nerves: Yes Normal hearing present Cognition (Neuro): normal cognition Gait exam (Neuro): Normal gait present Extrem General: Yes normal to inspection, Yes capillary refill normal, Yes no clubbing, cyanosis or edema and Yes no pedal edema Psych Appearance: grossly normal and well kempt Speech and movement: Normal speech and movement present and Clear speech present Affect: normal affect Attitude: cooperative Thought process: Normal thought process present Thought content: Normal thought content present Insight: Good insight present (Psych) Judgement: Good judgement present (Psych) Assessment & Plan Assessment & Plan (1) Obstructive sleep apnea: Code(s): G47.33 - Obstructive sleep apnea (adult) (pediatric) Category: Medical Plan Reviewed sleep study results with patient which revealed an AHI of 8.2, average oxygen saturation 94%, lowest 88% without significant nocturnal hypoxemia. Since patient is quite symptomatic, will continue CPAP therapy. Will send in prescription to [facility] for new CPAP machine in APAP mode and pressure settings of 6-16 cm with close monitoring for compliance and benefits. She is aware if there are any issues with the mask or CPAP machine, she will call [facility] or our office. All questions were answered and patient is in agreement of plan. Will follow up in 10-12 weeks. Coding Level of Care Code Est Pt Level 4 (71267) Diagnoses Obstructive sleep apnea G47.33
--- OUTSIDE RECORDS SUMMARY | 2025-05-19 13:43 | XMS_ITS | Clinical Summary ---
Author Organization [facility] [address] [place] [address] [place] [phone] Phone Care Team Providers Care Legal Department Manager Name Role Phone Najma Taylor MD Primary Care Provider [phone] Allergies Active Allergy Reactions Criticality Noted Date [...] 01/16/2018 Obstructive sleep apnea 08/13/2017 Overview (09/26/2024): [facility] Home Polysomnogram: Date 08/09/2017; AHI [...] related to menopause given surgical menopause in 2004 with hot flashes/night sweats initially that resolved [...] 8:30 AM EDT Treatment Pelvic Floor Rehabilitation [address] [phone] Gricelda Duffy, PT Urge urinary incontinence (Primary Dx); Muscle weakness; PEREZ (stress urinary incontinence, female); Dysuria 03/06/2025 9:30 AM EDT Treatment Pelvic Floor Rehabilitation - [address] [phone] Gricelda Duffy, PT Urge urinary incontinence (Primary Dx); Muscle weakness; PEREZ (stress urinary incontinence, female); Dysuria 02/23/2025 3:00 PM EDT Treatment Pelvic Floor Rehabilitation - [address] [phone] Gricelda Duffy, PT Urge urinary incontinence (Primary Dx); Muscle weakness; PEREZ (stress urinary incontinence, female); Dysuria from Last 3 Months Immunizations Name Administration [...] for your loved ones. For example, child care giver or elderly care for an older adult? [...] Care Team (Late st Contact Info) Description 07/21/2025 8:00 AM EDT Office Visit [facility] [place] [address], [place] [phone] Estee Chavira PA [address] [place] 07/22/2025 8:30 AM EDT Office Visit Urogynecology - [address] [phone] Mamie Strong MD [address] [place] [address] Health Maintenance Due Date Last Done Comments Zoster Vaccines (3 of 3) 05/05/2024 03/10/2024, 12/21 COVID-19 Vaccine ( season) 2025 08/29/2024, 10/06/2022, 09/13/2021, Additional history exists Influenza Vaccine (#1) 2025 , 07/23/2023, 06/27/2022, Additional history exists Social Influencers of Health Screening 12/30/2025 12/30/2024 Falls Risk Assessment 01/06/2026 01/06/2025 Hypertension/CHF/CAD Annual [...] 04/04/2037 04/04/2022 Hepatitis C Screening Completed 07/19/2018 Depression Screening Completed 01/06/2025 Pneumococcal Vaccine: 50+ Years Completed 01/06/2025 HIB [...] Encounter for screening mammogram for breast cancer HM COLONOSCOPY Routine 01/24/2024 DXA BONE DENSITY STUDY 1+ SITS AXIAL SKEL Routine 04/04/2022 3:04 PM EDT Asymptomatic menopausal state HEPATITIS C SCREENING Routine 07/19/2018 from Last 3 Months or Most Recently Relevant to Health Maintenance Results * Lipid panel with reflex to direct LDL (04/20/2025 2:13 PM EDT) Cholesterol 182 0 - 200 mg/dL LAB CHEMISTRY METHOD 04/20/2025 5:29 PM EDT [facility] Triglycerides 110 0 - 150 mg/dL LAB CHEMISTRY METHOD 04/20/2025 5:29 PM EDT [facility] HDL 66 >=40 mg/dL LAB CHEMISTRY METHOD 04/20/2025 5:29 PM EDT [facility] LDL Calculated 94 0 - 100 mg/dL LAB CHEMISTRY METHOD 04/20/2025 5:29 PM EDT [facility] VLDL Cholesterol Dilip 22 mg/dL LAB CHEMISTRY METHOD 04/20/2025 5:29 PM EDT [facility] Non HDL Chol. (LDL+VLDL) 116 <145 mg/dL LAB CHEMISTRY METHOD 04/20/2025 5:29 PM EDT [facility] Chol/HDL Ratio 2.8 0.0 - 4.4 LAB CHEMISTRY METHOD 04/20/2025 5:29 PM EDT [facility] Blood Venous blood specimen / Unknown Venipuncture / Unknown 04/20/2025 2:13 PM EDT 04/20/2025 2:13 PM EDT us Najma Taylor MD LAB BLOOD ORDERABLES Final Resul t [facility] [address] [place] [address], [place] [phone] * Basic metabolic panel (04/20/2025 2:13 PM EDT) Sodium 140 133 - 145 mmol/L LAB CHEMISTRY METHOD 04/20/2025 5:28 PM [facility] Potassium 4.0 3.5 - 5.5 mmol/L LAB CHEMISTRY METHOD 04/20/2025 5:28 PM [facility] Chloride 108 96 - 110 mmol/L LAB CHEMISTRY METHOD 04/20/2025 5:28 PM [facility] CO2 26 21 - 32 mmol/L LAB CHEMISTRY METHOD 04/20/2025 5:28 PM [facility] Anion Gap 6 3 - 11 LAB CHEMISTRY METHOD 04/20/2025 5:28 PM [facility] Glucose 84 70 - 100 mg/dL LAB CHEMISTRY METHOD 04/20/2025 5:28 PM [facility] BUN 15 5 - 25 mg/dL LAB CHEMISTRY METHOD 04/20/2025 5:28 PM [facility] Creatinine 0.82 0.50 - 1.10 mg/dL LAB CHEMISTRY METHOD 04/20/2025 5:28 PM [facility] eGFR 78 >=60 mL/min/1. 73m2 LAB CHEMISTRY METHOD 04/20/2025 5:28 PM [facility] Comment:Calculation based on the Chronic Kidney Disease Epidemiology Collaboration (CKD-EPI) equation refit without adjustment for race. BUN/Creatinine Ratio 18.3 LAB CHEMISTRY METHOD 04/20/2025 5:28 PM [facility] Calcium 8.9 8.5 - 10.5 mg/dL LAB CHEMISTRY METHOD 04/20/2025 5:28 PM [facility] Blood Venous blood specimen / Unknown Venipuncture / Unknown 04/20/2025 2:13 PM EDT 04/20/2025 2:13 PM EDT us Najma Taylor MD LAB BLOOD ORDERABLES Final Resul t [facility] [address] [place] [address], * MG Mammo Digital Screening w Lui [...] mammogram BILATERAL in 1 year. Mammo Location: [facility], [address] [place] [address], [id number], . -------- FINAL REPORT -------- Dictated By: Anne Ann Dictated Date: 09/03/2024 11:04 ET Assigned Physician: Anne Ann Reviewed and Electronically Signed By: Anne Ann Signed Date: 09/03/2024 11:07 ET Workstation ID: [id number] Transcribed By: Self Edit Transcribed Date: 09/03/2024 [...] and MLO projections. 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 TISSUE DENSITY: b. [...] CCand MLO projections. Computer aided detection with [employer] 3D 3.1was employed. TISSUE DENSITY: b. There [...] mammogram BILATERAL in 1 year. Mammo Location: [facility], [address] [place] [address], [facility], . -------- FINAL REPORT -------- Dictated By: Anne Ann Dictated Date: 09/03/2024 11:04 ET Assigned Physician: Anne Ann Reviewed and Electronically Signed By: Anne Ann Signed Date: 09/03/2024 11:07 ET Workstation ID: [id number] Transcribed By: Self Edit Transcribed Date: 09/03/2024 [...] normal bone density by WHO criteria. The [facility] Department of Internal Medicine recommends using National [...] alternative screening schedule based on patsy Bonds., [facility] November 09, 2011 for patients with [...] normal bone density by WHO criteria. The [facility] Department of Internal Medicine recommendsusing National Osteoporosis [...] alternative screening schedule based on pat[facility] Bonds., [facility] for [facility] with [facility]openia (based on [...] Resu lt * Hepatitis C Screening (07/19/2018) [facility] Hepatitis C Screening abstracted Historical Provider HEALTH MAINTENANCE Final Result from Last 3 Months or Most Recently Relevant to Health Maintenance Insurance [facility] Care Teams Legal Department Manager Relationship Specialty Start Date End Date Najma Taylor MD [address] [place] [address] PCP - General Internal Medicine 07/13/15
== END 2025-05-19 13:20 | disposition home or self-care (01) ==
LOC: HO.HPSW 12:57
PROVIDERS: PCP Internal Medicine; Visit Provider Nurse Practitioner Family
DX: G47.33 Obstructive sleep apnea (adult) (pediatric) (principal)
CPT/HCPCS: 99214

== ENCOUNTER 2025-09-16 13:13 | Outpatient (AMB) | payer OTHER, SELFPAY ==
[2025-09-16 13:22] VITALS: BP 140/78; PULSE 47; O2SAT 98; BMI 32.3
--- NOTE | 2025-09-16 13:22 | MHC.OFFVIS ---
Vital Signs 09/16/25 13:22 Height 5 ft 4 in Weight 188 lb 6 oz BMI 32.3 BP 140/78 H Blood Pressure Location Lt brachial Position Sitting Pulse 47 L Pulse Source Pulse Oximeter Pulse Oximetry (%) 98 Oxygen Delivery Method Room Air Intake Visit Reasons: Obstructive sleep apnea Allergies Penicillins Allergy (Verified 09/16/25 13:27) hives Sulfa (Sulfonamide Antibiotics) Allergy (Verified 09/16/25 13:27) hives HPI HPI Obstructive sleep apnea: Details: Mari is a pleasant 70 year old female, never smoker, with underlying SURYA, HTN and Anxiety. She was initially referred by PCP for pulmonary evaluation for SURYA. Home PSG 2016 revealed severe SURYA, AHI 32, 26 obstructive and 6 central events, without significant hypoxemia. Repeat HST 04/2025 demonstrated AHI of 8.2, average oxygen saturation 94%, lowest 88% without significant nocturnal hypoxemia. At the last visit a new order for CPAP was sent to [facility] in APAP mode with setting 6-16 cm H2O. Today she presents to review compliance report. At this time she denies any respiratory symptoms. COUNT INCLUDES THE [facility] Social History (Reviewed 09/16/25 @ 13:27 by Katrina Matos [facility]) Patient Tobacco Use Status: Never used Tobacco Review of Systems Const Denies chills, Denies excessive sweating, Denies fever(s), Denies headache(s) and Denies night sweats Eyes Denies dry eyes, Denies irritation and Denies itchy eyes ENT Reports Normal hearing present, Denies headache(s), Denies nasal congestion, Denies nasal discharge, Denies post nasal drip and Denies sore throat Card Denies chest pain, Denies chest pain at rest, Denies chest pain with activity, Denies claudication, Denies leg edema, Denies dyspnea, Denies dyspnea on exertion, Denies orthopnea and Denies paroxysmal nocturnal dyspnea Resp Denies chest congestion, Denies cough, Denies excessive phlegm production, Denies pain on inspiration, Denies pain with cough, Denies dyspnea, Denies dyspnea on exertion, Denies stridor and Denies wheezing Musc Denies myalgias Neuro Reports Normal hearing present and Denies headache(s) Endo Denies excessive sweating Richard/Lymph Denies lymphadenopathy Aller/Immun Denies itchy eyes, Denies seasonal rhinorrhea and Denies wheezing Physical Exam Vital Signs: Last Vital Signs Pulse 47 L 09/16/25 13:22 BP 140/78 H 09/16/25 13:22 Pulse Ox 98 09/16/25 13:22 Oxygen Delivery Method Room Air 09/16/25 13:22 BMI result Body Mass Index 32.3 Const General: cooperative, healthy appearing, comfortable, no acute distress, well developed and alert Nutritional Appearance: obese Orientation/consciousness: patient oriented x3 Limitations: no limitations HEENT Head: Yes normal to inspection, Yes normocephalic and Yes atraumatic Ears: hearing grossly normal bilaterally and external ears normal Eyes General: appearance normal, both eyes and all related structures Eyelids: Yes eyelids normal Sclerae: sclerae normal EOM: EOMs intact bilaterally Neck Neck: Yes normal visual inspection and Yes no lymphadenopathy Lymphatic: no lymphadenopathy noted Chest Chest palpation & inspection: normal inspection of the chest Resp Effort & Inspection: normal respiratory effort, able to speak in complete sentences, no audible wheezes, no cough, no stridor, not tachypneic, no tripod positioning and no use of accessory muscles Cardio Jugular venous distension: no JVD Rate: regular rate Rhythm: regular rhythm Skin Other: warm, dry General skin exam: no rashes or lesions noted Neuro General: patient oriented x3 Cranial nerves: Yes Normal hearing present Cognition (Neuro): normal cognition Gait exam (Neuro): Normal gait present Extrem General: Yes normal to inspection, Yes capillary refill normal, Yes no clubbing, cyanosis or edema and Yes no pedal edema Psych Appearance: grossly normal and well kempt Speech and movement: Normal speech and movement present and Clear speech present Affect: normal affect Attitude: cooperative Thought process: Normal thought process present Thought content: Normal thought content present Insight: Good insight present (Psych) Judgement: Good judgement present (Psych) Assessment & Plan Assessment & Plan (1) Obstructive sleep apnea: Code(s): G47.33 - Obstructive sleep apnea (adult) (pediatric) Category: Medical Plan Reviewed compliance report which demonstrates greater than 4 hour use 87% of the time, AHI 1.8 with minimal leaking for the last 30 days. She has been benefitting from use and is motivated to continue. All questions were answered and patient is in agreement of plan. Will follow up in 3-6 months or sooner if needed. Coding Level of Care Code Est Pt Level 4 (65251) Diagnoses Obstructive sleep apnea G47.33
== END 2025-09-16 13:46 | disposition home or self-care (01) ==
LOC: HO.HPSW 13:14
PROVIDERS: PCP Internal Medicine; Visit Provider Nurse Practitioner Family
DX: G47.33 Obstructive sleep apnea (adult) (pediatric) (principal)
CPT/HCPCS: 99214